=== PATIENT | female | born 1950 | race Caucasian/White ===

== ENCOUNTER 2016-06-04 23:00 | Emergency (ER) | payer MEDICARE, OTHER ==
[2016-06-04 22:02] LABS: BASOPHILS 0.2 %; BASOPHILS ABSOLUTE 0.03 10/3/uL (0.0-0.16); EOSINOPHILS 0.9 %; EOSINOPHILS ABSOLUTE 0.13 10/3/uL (0.0-0.53); ER CBC TAT 0 Hrs 08 Mins; HEMATOCRIT 40.5 % (36.0-48.0); HEMOGLOBIN 13.7 g/dL (12.0-16.0); IMMATURE GRANULOCYTES 0.2 %; IMMATURE GRANULOCYTES ABSOLUTE 0.03 10/3/uL (0.0-0.11); LYMPHOCYTES 37.9 %; LYMPHOCYTES ABSOLUTE 5.41 10/3/uL (0.67-4.30); MEAN CORPUS HGB CONC 33.8 g/dL (32.0-36.0); MEAN CORPUSCULAR HEMOGLOB 28.1 pg (26.0-34.0); MEAN PLATELET VOLUME 8.7 fL (9.2-13.0); MONOCYTES 7.3 %; MONOCYTES ABSOLUTE 1.04 10/3/uL (0.21-1.20); NEUTROPHILS 53.5 %; NEUTROPHILS ABSOLUTE 7.62 10/3/uL (2.02-8.40); PLATELET COUNT 449 10/3/uL (150-400); RBC DISTRIBUTION WIDTH 13.7 % (12.0-16.0); RED CELL COUNT 4.88 10/6/uL (4.0-5.6); WHITE BLOOD CELLS 14.3 10/3/uL (4.5-10.5)
[2016-06-04 22:03] LABS: MANUAL DIFF NO %
[2016-06-04 22:12] LABS: INTERNATIONAL NORMAL RATI 2.6 UNITS (-); PARTIAL THROMBO TIME 37.1 SEC (22.5-37.2); PROTIME (NOT ORD) 27.6 SEC (12.0-14.5)
[2016-06-04 22:18] LABS: BUN (BLOOD UREA NITROGEN) 22 MG/DL (6-23); CALCIUM, SERUM 8.6 MG/DL (8.5-10.4); CHEST PAIN PROFILE TAT 0 Hrs 24 Mins; CHLORIDE, SERUM 97 MMOL/L (96-112); CO2 (CARBON DIOXIDE) 29 MMOL/L (24-34); CREATININE 0.89 MG/DL (0.55-1.02); GFR AFRICAN AMERICAN 78 ML/MIN (>=60); GFR NON AFRICAN AMERICAN 67 ML/MIN (>=60); GLUCOSE, SERUM 135 MG/DL (60-99); POTASSIUM, SERUM 3.7 MMOL/L (3.5-5.3); SODIUM, SERUM 135 MMOL/L (135-148); TROPONIN I <0.02 NG/ML (<0.05)
[2016-06-04 22:29] LABS: BAND NEUTROPHILS 1 %; ER DIFF TAT 0 Hrs 35 Mins; LYMPHOCYTES 39 %; LYMPHOCYTES ABSOLUTE (CALC) 5.58 10/3/uL (0.67-4.30); MONOCYTES 3 %; MONOCYTES ABSOLUTE (CALC) 0.43 10/3/uL (0.21-1.20); NEUTROPHILS ABSOLUTE (CALC) 8.29 10/3/uL (2.02-8.40); SEGMENTED NEUTROPHIL (0) 57 %; TOTAL NUCLEATED CELLS 100
[2016-06-04 22:30] LABS: PLATELET ESTIMATE SLT INC (ADEQUATE); RBC MORPHOLOGY NORM (NORMAL)
[~2016-06-04 23:00] MED LIST: AMARYL4 PO; APRES50 PO; ASA5GR PO; ASAEC PO; ASPERCREME W/LIDOCAI TOP; ATV.5 PO; B12250T PO; BETAP120 PO; BETAPACE160 MG PO; BETAPACE80 PO; CALTRA600D PO; CALTRAT600 PO; CENTRUM TAB1 TAB PO; COZAAR100 MG PO; ELIQUIS 5 MG TAB5 MG PO; FLONASE NAS; GLUCOPHAGE1000 MG PO; GLUCPH PO; GLUMETZA500 MG PO; JANTOVEN5 MG PO; JANTOVEN7.5 MG PO; KLONO1 PO; L40 PO; LOM PO; LORTAB 5 PO; LYRICA75 PO; MAALOX PO; MOBIC7.5 PO; MULTIPLE VIT PO; MULTIVIT/MIN PO; MULTIVITAMI1 PO; NORCO1 TA1 PO; NORV10 PO; NORV5 PO; PEPTO BISMOL LIQ1 ML PO; PEPTO BISMOL UD30 ML PO; PREV15 PO; PRILOSEC40 MG PO; QUESTRAN4 GM PO; SPIRO25 PO; SPIRO50 PO; SUCR PO; SYSTANE BALANCE OP; V5 PO; VICODINTAB PO; VITAMI13; VITAMIN D PO; VITAMIN D31000 UNIT PO; VITAMIN D400 UNI1 PO; VITE PO; WELCHOL 625 MG625 MG PO
[2016-06-07] MEDS ORDERED: LEVOTHYROXIN175 MCG PO (11:47)
[2016-06-07] MEDS ORDERED: MAALOX MAX PO (11:52)
[2016-06-23] MEDS ORDERED: ZANTAC 75 PO (13:17)
[2016-06-23] MEDS ORDERED: SYSTANE OPH (13:17)
[2016-06-23] MEDS ORDERED: PEPTO-BISMOL TA1 TAB PO (13:18)
[2016-06-23] MEDS ORDERED: METHOC500B PO (13:19)
[2016-06-23] MEDS ORDERED: C1 PO (13:19)
[2016-06-23] MEDS ORDERED: WELCHOL 625 MG625 MG PO (13:22)
[2016-06-24] MEDS ORDERED: TUMSROLL PO (10:56)
== END 2016-06-05 04:45 | disposition home or self-care (01) ==
LOC: ER 23:00
PROVIDERS: Emergency Medicine
DX: I48.91 Unspecified atrial fibrillation (principal); I10 Essential (primary) hypertension; K21.9 Gastro-esophageal reflux disease without esophagitis; E11.9 Type 2 diabetes mellitus without complications; Z91.041 Radiographic dye allergy status; Z88.1 Allergy status to other antibiotic agents; Z79.899 Other long term (current) drug therapy
CPT/HCPCS: 71020; 80048; 83735; 84484; 85025; 85610; 85730; 93005; 99285

== ENCOUNTER 2016-06-08 20:16 | Emergency (ER) | payer MEDICARE, OTHER ==
[~2016-06-08 20:16] MED LIST changes: +LEVOTHYROXIN175 MCG PO; +MAALOX MAX PO
[2016-06-08 22:04] LABS: BASOPHILS 0.3 %; BASOPHILS ABSOLUTE 0.03 10/3/uL (0.0-0.16); EOSINOPHILS 1.7 %; EOSINOPHILS ABSOLUTE 0.15 10/3/uL (0.0-0.53); HEMATOCRIT 37.5 % (36.0-48.0); HEMOGLOBIN 12.7 g/dL (12.0-16.0); IMMATURE GRANULOCYTES 0.2 %; IMMATURE GRANULOCYTES ABSOLUTE 0.02 10/3/uL (0.0-0.11); LYMPHOCYTES 23.1 %; LYMPHOCYTES ABSOLUTE 2.06 10/3/uL (0.67-4.30); MEAN CORPUS HGB CONC 33.9 g/dL (32.0-36.0); MEAN CORPUSCULAR HEMOGLOB 27.8 pg (26.0-34.0); MEAN CORPUSCULAR VOLUME 82.1 fL (80-100); MEAN PLATELET VOLUME 8.8 fL (9.2-13.0); MONOCYTES 8.6 %; MONOCYTES ABSOLUTE 0.77 10/3/uL (0.21-1.20); NEUTROPHILS 66.1 %; NEUTROPHILS ABSOLUTE 5.89 10/3/uL (2.02-8.40); PLATELET COUNT 370 10/3/uL (150-400); RBC DISTRIBUTION WIDTH 13.7 % (12.0-16.0); RED CELL COUNT 4.57 10/6/uL (4.0-5.6); WHITE BLOOD CELLS 8.9 10/3/uL (4.5-10.5)
[2016-06-08 22:06] LABS: MANUAL DIFF NO %
[2016-06-08 22:15] LABS: INTERNATIONAL NORMAL RATI 2.9 UNITS (-); PARTIAL THROMBO TIME 49.8 SEC (22.5-37.2); PROTIME (NOT ORD) 29.8 SEC (12.0-14.5)
[2016-06-08 22:31] LABS: A/G RATIO 1.1 (0.7-1.9); ALBUMIN 3.6 G/DL (3.5-5.0); ALKALINE PHOSPHATASE 66 U/L (45-117); BUN (BLOOD UREA NITROGEN) 13 MG/DL (6-23); CALCIUM, SERUM 8.5 MG/DL (8.5-10.4); CHLORIDE, SERUM 102 MMOL/L (96-112); CO2 (CARBON DIOXIDE) 25 MMOL/L (24-34); CREATININE 0.72 MG/DL (0.55-1.02); GFR AFRICAN AMERICAN 100 ML/MIN (>=60); GFR NON AFRICAN AMERICAN 87 ML/MIN (>=60); GLOBULIN 3.2 G/DL (2.5-4.1); POTASSIUM, SERUM 3.6 MMOL/L (3.5-5.3); SGOT(AST) 10 U/L (5-40); SGPT(ALT) 22 U/L (5-65); SODIUM, SERUM 135 MMOL/L (135-148); TOTAL BILIRUBIN 0.4 MG/DL (0-1.2); TOTAL PROTEIN 6.8 G/DL (6.0-8.5); TROPONIN I <0.02 NG/ML (<0.05)
[2016-06-08 22:33] LABS: GLUCOSE, SERUM 189 MG/DL (60-99)
[2016-06-23] MEDS ORDERED: SYSTANE OPH (13:17)
[2016-06-23] MEDS ORDERED: ZANTAC 75 PO (13:17)
[2016-06-23] MEDS ORDERED: PEPTO-BISMOL TA1 TAB PO (13:18)
[2016-06-23] MEDS ORDERED: METHOC500B PO (13:19)
[2016-06-23] MEDS ORDERED: C1 PO (13:19)
[2016-06-23] MEDS ORDERED: WELCHOL 625 MG625 MG PO (13:22)
[2016-06-24] MEDS ORDERED: TUMSROLL PO (10:56)
== END 2016-06-08 23:52 | disposition home or self-care (01) ==
LOC: ER 20:16
PROVIDERS: Emergency Medicine
DX: R79.1 Abnormal coagulation profile (principal); Z91.041 Radiographic dye allergy status; Z88.1 Allergy status to other antibiotic agents; Z79.899 Other long term (current) drug therapy
CPT/HCPCS: 70450; 80048; 80053; 84484; 85025; 85610; 85730; 92960; 93005; 99285; A9270-GY

== ENCOUNTER 2016-06-27 04:01 | Inpatient (IN) | payer MEDICARE, OTHER ==
--- NOTE | ~2016-06-27 | CN ---
Consultation Report [address] [place]. [address] NAME: YESSI MORIN : 48 STATUS : ADM IN PAT#: [id number] AGE: 66 ADM/REG DATE : 06/27/16 MR#: [id number] REPORT SERV DATE: 06/28/16 DICTATED BY: KWASI ROMAN DATE: 06/28/16 REPORT STATUS : Draft TRANSCRIBED BY: MODL DATE: 06/28/16 CONSULTATION DATE OF CONSULTATION: REASON FOR CONSULTATION: Ms Yessi Morin is a 66-year-old female, who is admitted with congestive heart failure and has atrial fibrillation. CVD PHYSICIAN: Dr. Steven Hobson. HISTORY OF PRESENT ILLNESS: Ms Morin has a long history of atrial fibrillation, paroxysmal with cardioversion in the past. She has been attempted to be controlled on sotalol without success. She was admitted with congestive heart failure and borderline controlled atrial fibrillation. , she feels better, but still is in atrial fibrillation. REVIEW OF SYSTEMS: Negative for syncope or presyncope. No chest pain or chest discomfort. She does have symptoms of congestive heart failure which has now resolved. She does feel when her heart goes into atrial fibrillation. PAST MEDICAL HISTORY: 1. Diabetes. 2. Hyperlipidemia. 3. GERD. 4. Hypertension. 5. Morbid obesity. 6. Paroxysmal atrial fibrillation. 7. Anticoagulation, on Coumadin. SOCIAL HISTORY: She does not drink or smoke. Her is in attendance. FAMILY HISTORY: Positive for coronary artery disease. PHYSICAL EXAMINATION: BP: 114/56, Pulse: 89. She is afebrile. GENERAL: Resting comfortably, nutritional status appears adequate. EYES: PERRLA. LUNGS: No labored use of accessory muscles. Without rales or wheezes. COR: PMI is not displaced. No thrills or heaves. NL S1 and S2. No S3, murmur, click or rub. PULSES: Carotids without bruits. ABD: +BS, nontender. EXT: No cyanosis, clubbing or edema. Consultation Report [address] [place] [place]. [address] NAME: YESSI MORIN : 48 STATUS : ADM IN PAT#: [id number] AGE: 66 ADM/REG DATE : 06/27/16 MR#: [id number] REPORT SERV DATE: 06/28/16 DICTATED BY: KWASI ROMAN DATE: 06/28/16 REPORT STATUS : Draft TRANSCRIBED BY: SUZANNA DATE: 06/28/16 SKIN: No petechiae. NEURO: Alert and oriented. Does not appear anxious or depressed. LABORATORY EVALUATION: INR today is 2.7. Renal function is normal at 0.7. Potassium is 3.3. Electrolyte protocol will be given. ASSESSMENT: At this time, we will discuss options with Dr. Hobson. I do not feel she is a candidate now for cardioversion as she has demonstrated her inability to remain in sinus rhythm. Of interest was her thyroid function apparently had been elevated and there are decreasing her Synthroid substitution. AKI/SUZANNA Kwasi Roman M.D. / [id number] CC: Stanislav Field M.D.
--- NOTE | ~2016-06-27 | DS ---
Discharge Summary [facility] [address] [place]. [address] NAME: ROHITH RAE : 48 STATUS : DIS IN PAT#: [id number] AGE: 66 ADM/REG DATE : 06/27/16 MR#: [id number] REPORT SERV DATE: 06/29/16 DICTATED BY: ROGE MORALES DATE: 06/29/16 REPORT STATUS : Draft TRANSCRIBED BY: MODL DATE: 06/29/16 ADMISSION DATE: 06/27/2016 DISCHARGE DATE: 06/29/2016 DIAGNOSES ON ADMISSION: 1. Hypoxic respiratory failure. 2. Congestive heart failure exacerbation. 3. Leukocytosis. 4. Chronic paroxysmal atrial fibrillation. 5. Diabetes mellitus with a hemoglobin A1c 6.9, controlled. DIAGNOSES ON DISCHARGE: 1. Acute respiratory failure, present on admission, resolved. 2. Acute congestive heart failure exacerbation/diastolic dysfunction, resolved with intravenous diuretics and there is a component of over-suppressed, overtreated hypothyroidism with her congestive heart failure exacerbation. 3. Paroxysmal atrial fibrillation, currently rate controlled on chronic Coumadin with therapeutic INR. 4. Diabetes mellitus, controlled. 5. Morbid obesity. Once again, over-suppressed/overtreated hypothyroidism, dose of Synthroid decreased. 6. Mild leukocytosis present on admission, resolved next day. No evidence of infection. INTERIOR HORTICULTURIST ON THE CASE: Cardiologists; Dr. Roman and Dr. Hobson. IMAGING STUDIES: Chest x-ray done on 06/27/2016, showed improved aeration of the lungs with decreased pulmonary opacity consistent with improved pulmonary edema. Echocardiography done on 06/27/2016, revealed normal left ventricular size and systolic function. Estimated ejection fraction of 50% to 55%. No regional wall motion abnormality. Moderate diastolic dysfunction. Normal right ventricular size and systolic function. Trace pericardial effusion and large left pleural effusion was noted. PERTINENT LABORATORY RESULTS: Today sodium 139, potassium 3.7, chloride 105, carbon dioxide 23, BUN 15, creatinine 0.6, blood sugar 106, magnesium 2.1. Her INR 2.1 today on 06/29/2016. Blood cultures were negative, they were done on admission. TSH was over- suppressed at 0.122 on 06/27/2016. HISTORY OF PRESENT ILLNESS: Briefly, this is a very pleasant, 66-year-old female, who was admitted by my colleague, Dr. Amado, with shortness of breath, acute respiratory failure, and was in pulmonary edema. For the details, see history of present illness dictated by Dr. Amado on 06/27/2016. On admission, the patient was started on IV diuretics and was followed by ore tester as well and the patient's echocardiography showed diastolic dysfunction, and the patient responded well to intravenous diuretics. She was switched by ore tester to oral diuretics and her acute respiratory failure secondary to pulmonary edema resolved. The patient also had over-suppressed/overtreated hypothyroidism, and I discussed this with Dr. Greene Summary [place] [address] [place]. [address] NAME: ROHITH RAE : 48 STATUS : DIS IN PAT#: [id number] AGE: 66 ADM/REG DATE : 06/27/16 MR#: [id number] REPORT SERV DATE: 06/29/16 DICTATED BY: ROGE MORALES DATE: 06/29/16 REPORT STATUS : Draft TRANSCRIBED BY: SUZANNA DATE: 06/29/16 Joce and he thinks that excess thyroid hormone contributed to patient's acute congestive heart failure exacerbation, so we decreased her Synthroid to 150 mcg a day and she needs to check her TSH in four weeks per Dr. Barillas, as well as she was given prescription for Lasix at higher dose of 40 mg p.o. twice a day per Dr. Hobson along with potassium chloride 20 mEq b.i.d., and he recommended to check next BMP per Dr. Hobson on 07/04/2016, as well as the patient needs to recheck her PT and INR 07/04/2016 per [facility]. DISCHARGE MEDICATIONS: Norvasc 10 mg a day, calcium with vitamin D 200 mg a day, glimepiride 4 mg b.i.d., levothyroxine dose decreased to 150 mcg a day, prescription written for the patient to check TSH in four weeks, losartan 100 mg a day, multivitamins once a day, omeprazole 40 mg a day, sotalol 160 p.o. b.i.d., spironolactone 50 mg p.o. daily, Coumadin 6 mg a day, hydralazine 50 p.o. t.i.d., hydrocodone with acetaminophen 5/325 one tablet every four hours p.r.n. for pain, Lomotil 2.5 mg p.r.n., Maalox liquid one dose p.r.n., Ativan 0.5 daily p.r.n., metformin 1000 mg p.o. b.i.d. The patient needs to follow up with Dr. Barillas next week and follow up with Dr. Hobson. He has already an appointment scheduled with Dr. Hobson on 07/20/2016. She needs periodically to check a TSH per Dr. Barillas. The patient was discharged in stable condition. I spent 45 minutes on discharge. MG/MODL Roge Morales M.D. / [id number] CC: Stanislav Field M.D. Gregory Keith Bruce, M.D.
--- NOTE | ~2016-06-27 | HP ---
History And Physical [address] [address] NAME: ROHITH RAE : 49 STATUS : ADM IN PAT#: [id number] AGE: 66 ADM/REG DATE : 06/27/16 MR#: [id number] REPORT SERV DATE: 06/27/16 DICTATED BY: BUCK DAVISON DATE: 06/27/16 REPORT STATUS : Draft TRANSCRIBED BY: MODL DATE: 06/27/16 DATE OF ADMISSION: 06/27/2016 CHIEF COMPLAINT: A 66-year-old female presenting with shortness of breath and chest discomfort. HISTORY OF PRESENT ILLNESS: The patient's history was obtained through careful interview with the patient and her coupled with review of [facility] and [email or web address] medical records. The patient was in her usual state of health when on the morning she awoke with shortness of breath and a smothering feeling. She thought it might pass throughout the day, but it has only persisted. She describes discomfort at the base of her lungs, really in the back portion of her lungs, a sharp quality, 5 to 6 out of 10 in severity, exacerbated by deep breathing. She has had a slight nonproductive cough. Today, she has developed a low-grade fever up to 99.7 with occasional chills. She describes extreme orthopnea with an inability to lie backward at all. She has chronic lower extremity edema over the last year, but it has not worsened now. No abdominal pain or distention. No nausea or vomiting. No change in bowel or bladder habit. She has occasional chronic palpitations, about a month ago had a cardioversion for atrial fibrillation but without recurrence of symptoms. No palpitations today. She describes lightheadedness. She describes the diabetes is under good control, most recent hemoglobin A1c of 6.9; 05/2016. REVIEW OF SYSTEMS: Otherwise, a 14-point review of systems was obtained and was negative. PAST MEDICAL HISTORY: 1. Diabetes. 2. Atrial fibrillation, seen by Dr. Hobson, on Coumadin. 3. Hypertension. 4. Gastroesophageal reflux disorder. 5. Chronic back pain. 6. Irritable bowel syndrome. History And Physical [address] [address] NAME: ROHITH RAE : 49 STATUS : ADM IN PAT#: [id number] AGE: 66 ADM/REG DATE : 06/27/16 MR#: [id number] REPORT SERV DATE: 06/27/16 DICTATED BY: BUCK DAVISON DATE: 06/27/16 REPORT STATUS : Draft TRANSCRIBED BY: SUZANNA DATE: 06/27/16 PAST SURGICAL HISTORY: 1. Cholecystectomy. 2. Appendectomy. 3. Goiter surgery. 4. Perirectal abscess x2. 5. Bilateral knee surgery. 6. Hemorrhoidectomy. 7. Bilateral carpal tunnel release. 8. Lumbar spine surgery. 9. x2. 10.Tubal ligation. ALLERGIES: TO IV CONTRAST AND AZITHROMYCIN. SOCIAL HISTORY: No tobacco abuse. No alcohol abuse. Lives in [place], [place]. Is , has two children, one of whom lives in [place]. She is disabled. 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 FAMILY HISTORY: Brother with CABG. Father with CABG. Brother with an aortic valve replacement. Mother with coronary artery disease and stent placement. Also, a strong family history of diabetes. CURRENT MEDICATIONS: Unknown at this time. We have requested pharmacy to obtain and make a list of home medications for us. PHYSICAL EXAMINATION: VITAL SIGNS: Temperature 98.7, pulse 89, blood pressure 171/67, respiratory rate 23, O2 saturation 91% on 3 L nasal cannula, 86% on room air. GENERAL: An ill-appearing female in evidence of distress secondary to shortness of breath. HEENT: Pupils equal, round, and reactive to light. No conjunctival pallor. No scleral icterus. Nares are patent. Oropharynx is clear of obstruction. Moist mucous membranes. NECK: Trachea midline. No thyromegaly. LYMPHATICS: No cervical lymphadenopathy. No supraclavicular lymphadenopathy. RESPIRATORY: The patient does have wet rales at the base of lungs. No wheezes. Scattered rhonchi are noticed. I do not appreciate focal egophony. The patient has a labored respiratory effort. CARDIOVASCULAR: Regular rate and rhythm. No murmurs, rubs, or gallops. The patient has chronic-appearing lower extremity edema that is symmetrical. ABDOMEN: Soft, nontender, and nondistended. Normal bowel sounds auscultated throughout. No hepatosplenomegaly. DERMATOLOGIC: Warm and dry extremities. No pallor. No cyanosis. PSYCHIATRIC: Normal affect. Good mood. Alert and oriented x3. LABORATORY DATA: White blood cell count 13.5, hemoglobin 12, hematocrit 35, and platelets 349. Sodium 137, potassium 3.9, chloride 99, bicarb 26, BUN 12, creatinine 0.72, glucose 191, brain natriuretic peptide 169, and INR 3.0. Troponin negative. ABG demonstrates pH of History And Physical [address] [address] NAME: ROHITH RAE : 48 STATUS : ADM IN [facility]#: [id number] AGE: 66 ADM/REG DATE : 06/27/16 MR#: [id number] REPORT SERV DATE: 06/27/16 DICTATED BY: BUCK DAVISON DATE: 06/27/16 REPORT STATUS : Draft TRANSCRIBED BY: SUZANNA DATE: 06/27/16 7.49, a PaCO2 of 29, a PaO2 of 59, and a bicarb of 21 on 4 L nasal cannula. STUDIES: 1. Chest x-ray, by my own evaluation, shows pulmonary edema, right greater than left. 2. EKG, by my own evaluation, shows sinus rhythm, first-degree AV block, left bundle- branch block. ASSESSMENT AND PLAN: 1. Hypoxic respiratory failure, provide supportive care. 2. Congestive heart failure exacerbation, check an echocardiogram, place on IV diuretic, JUNIOR inhibitor, and Coreg. 3. Leukocytosis, possible pneumonia, check blood cultures, place on empiric IV antibiotics, check procalcitonin, check ESR and CRP. 4. Chronic paroxysmal atrial fibrillation, currently in sinus rhythm, good INR. 5. Diabetes, hemoglobin A1c of 6.9, place on sliding scale insulin. KPL/MODL Buck Davison M.D. / [id number] CC: Stanislav Irvin M.D. Gregory Keith Bruce, M.D.
--- NOTE | ~2016-06-27 | HP ---
History And Physical [address] [place]. [address] NAME: ROHITH RAE : 48 STATUS : ADM IN [facility]#: [id number] AGE: 66 ADM/REG DATE : 06/27/16 MR#: [id number] REPORT SERV DATE: 06/27/16 DICTATED BY: BUCK DAVISON DATE: 06/27/16 REPORT STATUS : Draft TRANSCRIBED BY: MODL DATE: 06/27/16 DATE OF ADMISSION: 06/27/2016 CHIEF COMPLAINT: A 66-year-old female who comes DICTATION ENDS HERE KPL/MODL Buck Davison M.D. / [id number] CC: Stanislav Irvin M.D. Gregory Keith Bruce, M.D.
[2016-06-27 03:48] LABS: BASOPHILS 0.2 %; BASOPHILS ABSOLUTE 0.03 10/3/uL (0.0-0.16); EOSINOPHILS 0.4 %; EOSINOPHILS ABSOLUTE 0.06 10/3/uL (0.0-0.53); HEMOGLOBIN 11.7 g/dL (12.0-16.0); IMMATURE GRANULOCYTES 0.3 %; IMMATURE GRANULOCYTES ABSOLUTE 0.04 10/3/uL (0.0-0.11); LYMPHOCYTES 9.3 %; LYMPHOCYTES ABSOLUTE 1.25 10/3/uL (0.67-4.30); MEAN CORPUS HGB CONC 33.4 g/dL (32.0-36.0); MEAN CORPUSCULAR HEMOGLOB 27.7 pg (26.0-34.0); MEAN CORPUSCULAR VOLUME 82.7 fL (80-100); MEAN PLATELET VOLUME 8.8 fL (9.2-13.0); MONOCYTES 11.6 %; MONOCYTES ABSOLUTE 1.57 10/3/uL (0.21-1.20); NEUTROPHILS 78.2 %; NEUTROPHILS ABSOLUTE 10.54 10/3/uL (2.02-8.40); PLATELET COUNT 349 10/3/uL (150-400); RBC DISTRIBUTION WIDTH 13.8 % (12.0-16.0); RED CELL COUNT 4.23 10/6/uL (4.0-5.6)
[2016-06-27 03:49] LABS: MANUAL DIFF NO %; WHITE BLOOD CELLS 13.5 10/3/uL (4.5-10.5)
[2016-06-27 03:52] LABS: BE (BASE EXCESS) -0.7 MEQ/L (0 +/- 2.5); CARBOXYHEMOGLOBIN 1.7 % (0-3); DEVICE NC; HCO3 (ACTUAL BICARBONATE) 21.8 MEQ/L (23-27); HEMOBLOGIN CONTENT 12.2 G/DL (12-16); INSTRUMENT SERIAL # 8087; METHEMOGLOBIN 0.2 % (0-3); O2 CONTENT 15.4 VOL% (18-24); PCO2 (CO2 TENSION) 29 MMHG (35-45); PO2 (O2 TENSION) 59 MMHG (79-93); SAMPLE Arterial; pH 7.49 (7.37-7.43)
[2016-06-27 03:56] LABS: PARTIAL THROMBO TIME 70.4 SEC (22.5-37.2); PROTIME (NOT ORD) 30.9 SEC (12.0-14.5)
[~2016-06-27 04:01] MED LIST changes: +C1 PO; +METHOC500B PO; +PEPTO-BISMOL TA1 TAB PO; +SYSTANE OPH; +TUMSROLL PO; +ZANTAC 75 PO
[2016-06-27 04:06] LABS: BUN (BLOOD UREA NITROGEN) 12 MG/DL (6-23); CALCIUM, SERUM 8.2 MG/DL (8.5-10.4); CHEST PAIN PROFILE TAT 0 Hrs 23 Mins; CHLORIDE, SERUM 99 MMOL/L (96-112); CO2 (CARBON DIOXIDE) 26 MMOL/L (24-34); CREATININE 0.72 MG/DL (0.55-1.02); GFR AFRICAN AMERICAN 100 ML/MIN (>=60); GFR NON AFRICAN AMERICAN 87 ML/MIN (>=60); GLUCOSE, SERUM 191 MG/DL (60-99); POTASSIUM, SERUM 3.9 MMOL/L (3.5-5.3); SODIUM, SERUM 137 MMOL/L (135-148); TROPONIN I <0.02 NG/ML (<0.05)
[2016-06-27] MEDS ORDERED: LEVOTHYROXIN150 MCG PO (05:27)
[2016-06-27] MEDS ORDERED: PRILOSEC40 MG PO (05:28)
[2016-06-27] MEDS ORDERED: GLUCOPHAGE1000 MG PO (05:29)
[2016-06-27] MEDS ORDERED: L40 PO (05:29)
[2016-06-27] MEDS ORDERED: AMARYL4 PO (05:30)
[2016-06-27] MEDS ORDERED: BETAPACE160 MG PO (05:30)
[2016-06-27] MEDS ORDERED: COZAAR100 MG PO (05:31)
[2016-06-27] MEDS ORDERED: NORV10 PO (05:32)
[2016-06-27] MEDS ORDERED: SPIRO50 PO (05:34)
[2016-06-27] MEDS ORDERED: JANTOVEN5 MG PO (05:34)
[2016-06-27] MEDS ORDERED: MULTIVITAMI1 PO (05:35)
[2016-06-27] MEDS ORDERED: OS500+D PO (05:35)
[2016-06-27] MEDS ORDERED: NORCO1 TA1 PO (05:36)
[2016-06-27] MEDS ORDERED: APRES50 PO (05:37)
[2016-06-27] MEDS ORDERED: LOM PO (05:37)
[2016-06-27] MEDS ORDERED: ATV.5 PO (05:38)
[2016-06-27] MEDS ORDERED: MAALOX PO (05:38)
[2016-06-27 12:55] LABS: BASOPHILS 0.3 %; BASOPHILS ABSOLUTE 0.03 10/3/uL (0.0-0.16); EOSINOPHILS 0.3 %; EOSINOPHILS ABSOLUTE 0.03 10/3/uL (0.0-0.53); HEMATOCRIT 32.8 % (36.0-48.0); HEMOGLOBIN 11.2 g/dL (12.0-16.0); IMMATURE GRANULOCYTES 0.2 %; IMMATURE GRANULOCYTES ABSOLUTE 0.02 10/3/uL (0.0-0.11); LYMPHOCYTES 14.2 %; LYMPHOCYTES ABSOLUTE 1.63 10/3/uL (0.67-4.30); MEAN CORPUS HGB CONC 34.1 g/dL (32.0-36.0); MEAN CORPUSCULAR HEMOGLOB 28.1 pg (26.0-34.0); MEAN CORPUSCULAR VOLUME 82.4 fL (80-100); MEAN PLATELET VOLUME 8.6 fL (9.2-13.0); MONOCYTES 11.7 %; MONOCYTES ABSOLUTE 1.34 10/3/uL (0.21-1.20); NEUTROPHILS 73.3 %; NEUTROPHILS ABSOLUTE 8.45 10/3/uL (2.02-8.40); PLATELET COUNT 356 10/3/uL (150-400); RBC DISTRIBUTION WIDTH 13.6 % (12.0-16.0); RED CELL COUNT 3.98 10/6/uL (4.0-5.6); WHITE BLOOD CELLS 11.5 10/3/uL (4.5-10.5)
[2016-06-27 13:00] LABS: MANUAL DIFF NO %
[2016-06-27 13:02] LABS: INTERNATIONAL NORMAL RATI 2.9 UNITS (-); PARTIAL THROMBO TIME 61.6 SEC (22.5-37.2); PROTIME (NOT ORD) 29.8 SEC (12.0-14.5)
[2016-06-27 13:19] LABS: A/G RATIO 0.8 (0.7-1.9); ALKALINE PHOSPHATASE 57 U/L (45-117); BUN (BLOOD UREA NITROGEN) 12 MG/DL (6-23); CALCIUM, SERUM 8.3 MG/DL (8.5-10.4); CHLORIDE, SERUM 102 MMOL/L (96-112); CO2 (CARBON DIOXIDE) 24 MMOL/L (24-34); GFR AFRICAN AMERICAN 104 ML/MIN (>=60); GFR NON AFRICAN AMERICAN 90 ML/MIN (>=60); GLOBULIN 3.7 G/DL (2.5-4.1); GLUCOSE, SERUM 155 MG/DL (60-99); POTASSIUM, SERUM 3.8 MMOL/L (3.5-5.3); SGOT(AST) 6 U/L (5-40); SGPT(ALT) 19 U/L (5-65); SODIUM, SERUM 137 MMOL/L (135-148); TOTAL PROTEIN 6.7 G/DL (6.0-8.5); TROPONIN I <0.02 NG/ML (<0.05)
[2016-06-27 13:20] LABS: TOTAL BILIRUBIN 0.9 MG/DL (0-1.2); ULTRASENSITIVE TSH 0.122 MCIU/ML (0.358-3.740)
[2016-06-27 13:44] LABS: PROCALCITONIN 0.11 ng/mL (<0.5)
[2016-06-27 14:12] LABS: SED RATE 63 MM/HR (0-20)
[2016-06-28 06:21] LABS: BASOPHILS 0.2 %; BASOPHILS ABSOLUTE 0.02 10/3/uL (0.0-0.16); EOSINOPHILS 1.8 %; EOSINOPHILS ABSOLUTE 0.18 10/3/uL (0.0-0.53); HEMATOCRIT 31.9 % (36.0-48.0); HEMOGLOBIN 10.6 g/dL (12.0-16.0); IMMATURE GRANULOCYTES 0.2 %; IMMATURE GRANULOCYTES ABSOLUTE 0.02 10/3/uL (0.0-0.11); LYMPHOCYTES 23.2 %; LYMPHOCYTES ABSOLUTE 2.29 10/3/uL (0.67-4.30); MANUAL DIFF NO %; MEAN CORPUS HGB CONC 33.2 g/dL (32.0-36.0); MEAN CORPUSCULAR HEMOGLOB 27.9 pg (26.0-34.0); MEAN CORPUSCULAR VOLUME 83.9 fL (80-100); MEAN PLATELET VOLUME 8.7 fL (9.2-13.0); MONOCYTES 12.2 %; NEUTROPHILS 62.4 %; NEUTROPHILS ABSOLUTE 6.16 10/3/uL (2.02-8.40); PLATELET COUNT 345 10/3/uL (150-400); RBC DISTRIBUTION WIDTH 13.7 % (12.0-16.0); WHITE BLOOD CELLS 9.9 10/3/uL (4.5-10.5)
[2016-06-28 06:26] LABS: INTERNATIONAL NORMAL RATI 2.7 UNITS (-); PROTIME (NOT ORD) 28.8 SEC (12.0-14.5)
[2016-06-28 06:32] LABS: BUN (BLOOD UREA NITROGEN) 15 MG/DL (6-23); CALCIUM, SERUM 8.3 MG/DL (8.5-10.4); CHLORIDE, SERUM 99 MMOL/L (96-112); CO2 (CARBON DIOXIDE) 28 MMOL/L (24-34); GFR AFRICAN AMERICAN 104 ML/MIN (>=60); GFR NON AFRICAN AMERICAN 90 ML/MIN (>=60); GLUCOSE, SERUM 86 MG/DL (60-99); POTASSIUM, SERUM 3.3 MMOL/L (3.5-5.3); SODIUM, SERUM 138 MMOL/L (135-148)
[2016-06-28 14:36] LABS: POTASSIUM, SERUM 4.2 MMOL/L (3.5-5.3)
[2016-06-29 07:19] LABS: BASOPHILS 0.5 %; BASOPHILS ABSOLUTE 0.04 10/3/uL (0.0-0.16); EOSINOPHILS 3.4 %; EOSINOPHILS ABSOLUTE 0.28 10/3/uL (0.0-0.53); HEMATOCRIT 33.9 % (36.0-48.0); HEMOGLOBIN 11.3 g/dL (12.0-16.0); IMMATURE GRANULOCYTES 0.2 %; IMMATURE GRANULOCYTES ABSOLUTE 0.02 10/3/uL (0.0-0.11); LYMPHOCYTES 28.8 %; MEAN CORPUS HGB CONC 33.3 g/dL (32.0-36.0); MEAN CORPUSCULAR HEMOGLOB 27.8 pg (26.0-34.0); MEAN CORPUSCULAR VOLUME 83.3 fL (80-100); MEAN PLATELET VOLUME 8.7 fL (9.2-13.0); MONOCYTES ABSOLUTE 0.83 10/3/uL (0.21-1.20); NEUTROPHILS 57.1 %; NEUTROPHILS ABSOLUTE 4.77 10/3/uL (2.02-8.40); PLATELET COUNT 384 10/3/uL (150-400); RBC DISTRIBUTION WIDTH 13.6 % (12.0-16.0); RED CELL COUNT 4.07 10/6/uL (4.0-5.6); WHITE BLOOD CELLS 8.3 10/3/uL (4.5-10.5)
[2016-06-29 07:22] LABS: INTERNATIONAL NORMAL RATI 2.1 UNITS (-)
[2016-06-29 07:23] LABS: PROTIME (NOT ORD) 23.6 SEC (12.0-14.5)
[2016-06-29 07:25] LABS: MANUAL DIFF NO %
[2016-06-29 07:37] LABS: BUN (BLOOD UREA NITROGEN) 15 MG/DL (6-23); CALCIUM, SERUM 8.5 MG/DL (8.5-10.4); CHLORIDE, SERUM 105 MMOL/L (96-112); CO2 (CARBON DIOXIDE) 23 MMOL/L (24-34); GFR AFRICAN AMERICAN 109 ML/MIN (>=60); GFR NON AFRICAN AMERICAN 94 ML/MIN (>=60); GLUCOSE, SERUM 106 MG/DL (60-99); POTASSIUM, SERUM 3.7 MMOL/L (3.5-5.3); SODIUM, SERUM 139 MMOL/L (135-148)
[2016-06-29] MEDS ORDERED: KDUR20 PO (11:40)
== END 2016-06-29 13:20 | disposition home or self-care (01) | DRG 291 ==
LOC: ER 04:01 → 5NO 04:45
PROVIDERS: Hospitalist; Internal Medicine; Specialist
DX: I11.0 Hypertensive heart disease with heart failure (principal); J96.01 Acute respiratory failure with hypoxia; I48.0 Paroxysmal atrial fibrillation; E11.9 Type 2 diabetes mellitus without complications; I50.33 Acute on chronic diastolic (congestive) heart failure; E03.9 Hypothyroidism, unspecified; Z79.01 Long term (current) use of anticoagulants; E66.01 Morbid (severe) obesity due to excess calories; T38.1X5A Adverse effect of thyroid hormones and substitutes, initial encounter; Z79.84 Long term (current) use of oral hypoglycemic drugs; E78.5 Hyperlipidemia, unspecified; K21.9 Gastro-esophageal reflux disease without esophagitis; Z68.38 Body mass index [BMI] 38.0-38.9, adult
CPT/HCPCS: 36600; 71010; 80048; 80053; 82805; 82962; 83735; 83880; 84132; 84145; 84443; 84484; 85025; 85610; 85652; 85730; 86141; 87040; 93005; 93306; 94640; 96374; 99285; A9270-GY; J1956